=== PATIENT | male | born 1960 | race African-American/Black ===

== ENCOUNTER 2016-08-18 11:11 | Emergency (ER) | payer OTHER ==
[~2016-08-18] VITALS: Ht 172.7 cm; Wt 84.8 kg
[2016-08-18] MEDS ORDERED: CYCL10TA PO (12:17)
[2016-08-18] MEDS ORDERED: COMBAER6 INH (12:17)
[2016-08-18] MEDS ORDERED: ASPI81TA85 PO (12:17)
[2016-08-18] MEDS ORDERED: SIMV80TA PO (12:17)
[2016-08-18] MEDS ORDERED: TESTOSTERONE TD (12:17)
[2016-08-18] MEDS ORDERED: SILD20TA11 PO (12:17)
[2016-08-18] MEDS ORDERED: NS 1,000 ML IV ONE (12:45)
[2016-08-18 12:58] LABS: BASO % 0.5 % (0.0-1.0); EOS % 1.1 % (0.0-3.0); LARGE UNSTAINED CELL % 0.9 % (0.0-4.0); LYMPH # 0.6 K/mm3 (1.5-4.5); LYMPH % 14.1 % (24.0-44.0); MEAN CORPUSCULAR HEMOGLOBIN 24.1 pg (27.0-33.0); MEAN CORPUSCULAR HGB CONC 32.5 g/dl (32.0-36.5); MEAN CORPUSCULAR VOLUME 74.4 fl (80.0-96.0); MONO # 0.4 K/mm3 (0.0-0.8); MONO % 10.7 % (0.0-5.0); NEUTROPHILS # 2.9 K/mm3 (1.8-7.7); NEUTROPHILS % 72.8 % (36.0-66.0); PLATELET COUNT, AUTOMATED 181 k/mm3 (150-450); RED CELL DISTRIBUTION WIDTH 13.3 % (11.5-14.5)
[2016-08-18 13:26] LABS: ANION GAP 13 MEQ/L (8-16); BLOOD UREA NITROGEN 25 MG/DL (7-18); CALCIUM LEVEL 8.5 MG/DL (8.5-10.1); CARBON DIOXIDE LEVEL 23 MEQ/L (21-32); CHLORIDE LEVEL 99 MEQ/L (98-107); CREATININE FOR GFR 1.35 MG/DL (0.70-1.30); GLOMERULAR FILTRATION RATE > 60.0 (>56); GLUCOSE, FASTING 112 MG/DL (70-105); POTASSIUM SERUM 3.7 MEQ/L (3.5-5.1); SODIUM LEVEL 135 MEQ/L (136-145)
[2016-08-18 15:20] VITALS: BP 115/64
--- NOTE | 2016-08-19 09:20 | ECGEPIP ---
Stationary ECG Study [facility] - ED Test Date: 2016-08-18 Pat Name: HE REY Department: Room: - Gender: M Floorwalker: lizandro : 1960 Requested By: Anette Trevino Order Number: [id number] Reading MD: Anette Trevino Measurements Intervals Stewart Rate: 77 P: 68 MO: 162 QRS: -9 QRSD: 77 T: 38 QT: 380 QTc: 431 Interpretive Statements SINUS RHYTHM LOW VOLTAGE LIMB NO PRIOR FOR COMPARISON Electronically Signed On 08-19-2016 9:20:19 EST by Anette Trevino
== END 2016-08-18 15:30 | disposition home or self-care (01) ==
LOC: M ED 13:26
DX: R55 Syncope and collapse (principal); Z87.891 Personal history of nicotine dependence

== ENCOUNTER → 2019-07-13 | Outpatient (REF) | payer OTHER ==
[~2019-07-13] MED LIST: ASPI81TA85 PO; COMBAER6 INH; CYCL10TA PO; SILD20TA11 PO; SIMV80TA13 PO; TESTOSTERONE TD
[2019-07-13 17:04] LABS: INFLUENZA A AMPLIFICATION NEGATIVE (NEGATIVE); INFLUENZA B AMPLIFICATION NEGATIVE (NEGATIVE)
== END ==
LOC: M LAB REF 16:14
PROVIDERS: ATTEND Physician Assistant
DX: J11.1 Influenza due to unidentified influenza virus with other respiratory manifestations (principal)

== ENCOUNTER → 2021-03-31 | Outpatient (CLI) | payer OTHER ==
[~2021-03-31] MED LIST changes: -ASPI81TA85 PO; +ASPI81TA86 PO; +CYCL-707 PO; -CYCL10TA PO
--- NOTE | 2021-04-02 06:12 | REP ---
INDICATION: PANLOBULAR EMPHYSEMA COMPARISON: Outside examinations dated 03/26/2020, 01/16/2019 TECHNIQUE: Axial noncontrast images from the thoracic inlet to the upper abdomen with coronal and sagittal reformations. This CT examination was performed using the following dose reduction techniques: Automated exposure control, adjustment of mA and/or kv according to the patient's size, and use of iterative reconstruction technique. FINDINGS: Advanced COPD/emphysematous changes with large bullae (right greater than left) including 8.5 cm right apical bolus and moderate to significant diffuse bronchiectasis noted. No acute consolidation, suspicious nodule or mass lesion identified. Calcified mediastinal and hilar lymph nodes consistent with prior granulomatous disease. No effusion. No pneumothorax. No significant acute adenopathy. Further evaluation of the mediastinum demonstrates ascending aorta measuring 4.0 cm maximal true diameter along with [id number] partially calcified atherosclerotic changes. No cardiomegaly or pericardial effusion. Surrounding musculoskeletal structures intact and demonstrate age-related degenerative changes. Limited upper abdomen demonstrates normal bilateral adrenal glands along with splenic calcifications again consistent with prior granulomatous disease and right renal hypodensities suggesting cysts. IMPRESSION: 1. Advanced COPD/emphysematous changes with large bullae and bronchiectasis. 2. No acute mediastinal or pleuroparenchymal process appreciated. 3. Ascending aorta measures 4 cm true maximal diameter. <Electronically signed by Kj Howard > 04/02/21 0629
== END ==
LOC: M PLAIMG 11:14
PROVIDERS: ATTEND Physician Assistant
DX: J43.1 Panlobular emphysema (principal); J47.9 Bronchiectasis, uncomplicated

== ENCOUNTER 2023-04-14 10:40 | Day surgery (SDC) | payer OTHER ==
[~2023-04-14] VITALS: Ht 175.3 cm; Wt 93.0 kg
[~2023-04-14 10:40] MED LIST changes: +FLOM0.4C39 PO; +LIDOCAINE 2% 100MG/5ML SDV (FOR ANES.) As Ordered ONE; +NS 1,000 ML IV ONE; +OXYB10TA23 PO; +ROSU40TA4 PO; +SILD100T PO; +SPIR1CAP INH; +SYMB80INH INH; +VENTAER INH; +VITA100093 PO; +propofoL 200 MG/20 ML VIAL As Ordered ONE
[2023-04-14 13:30] VITALS: BP 134/77; TEMP 97.1; O2SAT 98
== END 2023-04-14 13:32 | disposition home or self-care (01) ==
LOC: M OPP 10:40
PROVIDERS: ATTEND Surgery
DX: Z12.11 Encounter for screening for malignant neoplasm of colon (principal); Z12.12 Encounter for screening for malignant neoplasm of rectum; D12.3 Benign neoplasm of transverse colon; K57.30 Diverticulosis of large intestine without perforation or abscess without bleeding; J44.9 Chronic obstructive pulmonary disease, unspecified; Z79.51 Long term (current) use of inhaled steroids; Z79.899 Other long term (current) drug therapy; Z87.891 Personal history of nicotine dependence; Z88.8 Allergy status to other drugs, medicaments and biological substances

== ENCOUNTER → 2023-06-11 | Outpatient (CLI) | payer OTHER ==
[~2023-06-11] MED LIST changes: -LIDOCAINE 2% 100MG/5ML SDV (FOR ANES.) As Ordered ONE; -NS 1,000 ML IV ONE; -propofoL 200 MG/20 ML VIAL As Ordered ONE
== END ==
LOC: M SLEEP 20:00
PROVIDERS: ATTEND Nurse Practitioner Family
DX: R06.83 Snoring (principal)